=== PATIENT | female | born 1990 | race Caucasian/White ===

== ENCOUNTER 2017-04-28 10:50 | Emergency (ER) | payer SELFPAY ==
[~2017-04-28 10:50] MED LIST: HYDR-971 PO
[2017-04-28 11:05] VITALS: BP 128/69
[2017-04-28] MEDS ORDERED: KETOROLAC TROMETHAMINE 30 MG/ML INJ. IV ONE (11:30)
[2017-04-28] MEDS ORDERED: PROCHLORPERAZINE 10 MG/2 ML VIAL. IV ONE (11:30)
[2017-04-28] MEDS ORDERED: IV NORMAL SALINE 1000ML BAG 1,000 ML IV ONE (11:30)
[2017-04-28] MEDS ORDERED: diphenhydrAMINE 50 MG/ML VIAL IVP ONE (11:30)
[2017-04-28 11:56] LABS: BASO % 1 % (0-3); EOS % 2 % (0-3); HEMATOCRIT 41.1 % (36.0-47.0); HEMOGLOBIN 14.2 g/dL (12.0-15.5); LYMPH # 1.4 x10^3/uL (1.0-4.8); LYMPH % 33 % (24-48); MEAN CORPUSCULAR HEMOGLOBIN 30 pg (25-35); MEAN CORPUSCULAR HGB CONC 35 g/dL (31-37); MEAN CORPUSCULAR VOLUME 85 fL (79-100); MONO % 7 % (0-9); NEUT % 58 % (31-73); PLATELET COUNT 217 x10^3/uL (140-400); RED BLOOD COUNT 4.81 x10^6/uL (3.50-5.40); RED CELL DISTRIBUTION WIDTH 13.4 % (11.5-14.5); WHITE BLOOD COUNT 4.3 x10^3/uL (4.0-11.0)
[2017-04-28 12:10] LABS: CALCIUM 9.2 mg/dL (8.5-10.1); CREATININE 0.7 mg/dL (0.6-1.0); POTASSIUM 4.3 mmol/L (3.5-5.1)
[2017-04-28 12:14] LABS: ALBUMIN 4.2 g/dL (3.4-5.0); ALBUMIN/GLOBULIN RATIO 1.2 (1.0-1.7); TOTAL BILIRUBIN 0.5 mg/dL (0.2-1.0); TOTAL PROTEIN 7.7 g/dL (6.4-8.2)
--- NOTE | 2017-04-28 12:17 | PHYS DOC ---
Past Medical History Past Medical History: GERD Past Surgical History: No Surgical History Alcohol Use: None Drug Use: None Adult General Chief Complaint Chief Complaint: HEADACHE HPI HPI Patient is a 26 year old female presenting to the emergency department for evaluation of a headache that has been going on for 3 weeks. Headache is intermittent mostly occipital in nature but can radiate to the front of her head and is associated with photophobia and nausea and dizziness and sometimes she feels somewhat confused. She has seen the nurse practitioner for her primary care provider several times and was started on a migraine medication that starts with an M that she did not bring it. Patient denies any history of headaches but she did hit her head before these headache started and they were thinking that this may be a postconcussive type headache. She denies any vision changes nausea vomiting neck stiffness unilateral weakness numbness or tingling. Review of Systems Review of Systems Constitutional: Denies fever or chills [] Eyes: Denies change in visual acuity, redness, or eye pain [] Respiratory: Denies cough or shortness of breath [] Cardiovascular: No additional information not addressed in HPI [] GI: Denies abdominal pain. + nausea. No vomiting, bloody stools or diarrhea [] : Denies dysuria or hematuria [] Musculoskeletal: Denies back pain or joint pain [] Integument: Denies rash or skin lesions [] Neurologic: + headache. No focal weakness or sensory changes [] Current Medications Current Medications Current Medications Medications (Trade) Dose Ordered Sig/John Start Time Stop Time Status Last Admin Dose Admin Diphenhydramine HCl (Benadryl) 50 mg 1X ONCE 04/28/17 11:30 04/28/17 11:31 DC 04/28/17 11:30 50 MG Ketorolac Tromethamine (Toradol) 30 mg 1X ONCE 04/28/17 11:30 04/28/17 11:31 DC 04/28/17 11:30 30 MG Prochlorperazine Edisylate (Compazine) 10 mg 1X ONCE 04/28/17 11:30 04/28/17 11:31 DC 04/28/17 11:30 10 MG Sodium Chloride 1,000 ml @ 1,000 mls/hr 1X ONCE 04/28/17 11:30 04/28/17 12:29 DC 04/28/17 11:30 1,000 MLS/HR Allergies Allergies Allergies Coded Allergies Type Severity Reaction Last Updated Verified No Known Drug Allergies 07/14/16 No Physical Exam Physical Exam Constitutional: Well developed, well nourished, no acute distress, non-toxic appearance. [] HENT: Normocephalic, atraumatic, bilateral external ears normal, oropharynx moist, no oral exudates, nose normal. [] Eyes: PERRLA, EOMI, conjunctiva normal, no discharge. [] Neck: Normal range of motion, no tenderness, supple, no stridor. [] Cardiovascular:Heart rate regular rhythm, no murmur [] Lungs & Thorax: Bilateral breath sounds clear to auscultation [] Abdomen: Bowel sounds normal, soft, no tenderness, no masses, no pulsatile masses. [] Skin: Warm, dry, no erythema, no rash. [] Back: No tenderness, no CVA tenderness. [] Extremities: No tenderness, no cyanosis, no clubbing, ROM intact, no edema. [] Neurologic: Alert and oriented X 3, normal motor function, normal sensory function, no focal deficits noted. [] Current Patient Data Vital Signs Vital Signs Date Time Temp Pulse Resp B/P (MAP) Pulse Ox O2 Delivery O2 Flow Rate FiO2 04/28/17 11:05 98.2 92 20 128/69 (88) 100 Room Air 98.2 Lab Values Laboratory Tests Test 04/28/17 11:31 04/28/17 11:38 04/28/17 12:20 POC Urine HCG, Qualitative Hcg negative (Negative) White Blood Count 4.3 x10^3/uL (4.0-11.0) Red Blood Count 4.81 x10^6/uL (3.50-5.40) Hemoglobin 14.2 g/dL (12.0-15.5) Hematocrit 41.1 % (36.0-47.0) Mean Corpuscular Volume 85 fL (79-100) Mean Corpuscular Hemoglobin 30 pg (25-35) Mean Corpuscular Hemoglobin Concent 35 g/dL (31-37) Red Cell Distribution Width 13.4 % (11.5-14.5) Platelet Count 217 x10^3/uL (140-400) Neutrophils (%) (Auto) 58 % (31-73) Lymphocytes (%) (Auto) 33 % (24-48) Monocytes (%) (Auto) 7 % (0-9) Eosinophils (%) (Auto) 2 % (0-3) Basophils (%) (Auto) 1 % (0-3) Neutrophils # (Auto) 2.5 x10^3uL (1.8-7.7) Lymphocytes # (Auto) 1.4 x10^3/uL (1.0-4.8) Monocytes # (Auto) 0.3 x10^3/uL (0.0-1.1) Eosinophils # (Auto) 0.1 x10^3/uL (0.0-0.7) Basophils # (Auto) 0.0 x10^3/uL (0.0-0.2) Sodium Level 142 mmol/L (136-145) Potassium Level 4.3 mmol/L (3.5-5.1) Chloride Level 103 mmol/L (98-107) Carbon Dioxide Level 32 mmol/L (21-32) Anion Gap 7 (6-14) Blood Urea Nitrogen 11 mg/dL (7-20) Creatinine 0.7 mg/dL (0.6-1.0) Estimated GFR (Cockcroft-Gault) 102.0 BUN/Creatinine Ratio 16 (6-20) Glucose Level 94 mg/dL (70-99) Calcium Level 9.2 mg/dL (8.5-10.1) Magnesium Level 2.0 mg/dL (1.8-2.4) Total Bilirubin 0.5 mg/dL (0.2-1.0) Aspartate Amino Transferase (AST) 13 U/L (15-37) L Alanine Aminotransferase (ALT) 16 U/L (14-59) Alkaline Phosphatase 48 U/L (46-116) Creatine Kinase 32 U/L (26-192) Total Protein 7.7 g/dL (6.4-8.2) Albumin 4.2 g/dL (3.4-5.0) Albumin/Globulin Ratio 1.2 (1.0-1.7) Ethyl Alcohol Level < 10 mg/dL (0-10) Urine Collection Type Unknown Urine Color Yellow Urine Clarity Clear Urine pH 7.5 Urine Specific Herrick 1.010 Urine Protein Negative mg/dL (NEG-TRACE) Urine Glucose (UA) Negative mg/dL (NEG) Urine Ketones (Stick) Negative mg/dL (NEG) Urine Blood Negative (NEG) Urine Nitrite Negative (NEG) Urine Bilirubin Negative (NEG) Urine Urobilinogen Dipstick 0.2 mg/dL (0.2 mg/dL) Urine Leukocyte Esterase Large (NEG) Urine RBC 0 /HPF (0-2) Urine WBC 20-40 /HPF (0-4) Urine Squamous Epithelial Cells Mod /LPF Urine Bacteria 0 /HPF (0-FEW) Urine Opiates Screen Neg (NEG) Urine Methadone Screen Neg (NEG) Urine Barbiturates Neg (NEG) Urine Phencyclidine Screen Neg (NEG) Urine Amphetamine/Methamphetamine Neg (NEG) Urine Benzodiazepines Screen Neg (NEG) Urine Cocaine Screen Neg (NEG) Urine Cannabinoids Screen Neg (NEG) Urine Ethyl Alcohol Neg (NEG) Laboratory Tests 04/28/17 11:38 Laboratory Tests 04/28/17 11:38 EKG EKG [] Radiology/Procedures Radiology/Procedures ndication headache for 3 weeks. Noncontrast images of the head were obtained. No prior imaging of the head is available. The calvarium appears unremarkable. The visualized paranasal sinuses appear normal. There is no subdural or epidural hematoma. Ventricles and sulci are normal. No mass or midline shift is seen. There is no evidence of hemorrhage. IMPRESSION: No acute or significant intracranial finding is seen PQRS Compliance Statement: One or more of the following individualized dose reduction techniques were utilized for this examination: 1. Automated exposure control 2. Adjustment of the mA and/or kV according to patient size 3. Use of iterative reconstruction technique DICTATED and SIGNED Course & Med Decision Making Course & Med Decision Making Patient's headache completely resolved with Toradol Compazine and Benadryl and IV fluids. Given patient's pain was resolved I told her that she may be able to go home and she was requesting to go home. See any evidence of subarachnoid hemorrhage cerebral venous thrombosis meningitis or other acute headache condition at this time. Complex migraines is most likely diagnosis. O2 the neurologist digital production manager Dr. Leiva and he recommended starting amitriptyline having patient follow with the neurology office later this week. I spoke to patient and offered admission for further pain control and MRI and MRV however patient says that she was feeling much better and wanted to go home and would come back if she started having severe pain again. Patient aware and agreeable with plan for discharge and verbalized understanding of the need for short-term follow-up and strict ER return precautions discussed including worsening pain fevers vomiting or other general concerns. Dragon Disclaimer Dragon Disclaimer This electronic medical record was generated, in whole or in part, using a voice recognition dictation system. Departure Departure Impression: Primary Impression: Headache Disposition: 01 HOME, SELF-CARE Condition: GOOD Referrals: BASSAM CUNNINGHAM MD (PCP) Patient Instructions: Headache, FAQs Additional Instructions: YOU CAN TAKE TYLENOL AND IBUPROFEN FOR THE PAIN. FOLLOW WITH THE NEUROLOGIST THIS WEEK AND COME BACK TO THE ED SOONER WITH ANY NEW OR WORSENING SYMPTOMS. THANK YOU! Scripts Amitriptyline Hcl (AMITRIPTYLINE HCL) 25 Mg Tablet 1 TAB PO QHS, #30 TAB 0 Refills Prov: BASSAM SAMS DO 04/28/17 Ondansetron (ZOFRAN ODT) 4 Mg Tab.rapdis 4 MG PO BID Y for NAUSEA/VOMITING, #14 TAB Prov: BASSAM SAMS DO 04/28/17 Problem Qualifiers Primary Impression: Headache Headache type: unspecified Headache chronicity pattern: acute headache Intractability: not intractable Qualified Codes: R51 - Headache BASSAM SAMS DO Apr 28, 2017 12:17
[2017-04-28 12:38] LABS: BILIRUBIN,URINE NEGATIVE (NEG); GLUCOSE,URINE NEGATIVE (NEG); NITRITE,URINE NEGATIVE (NEG); PH,URINE 7.5; PROTEIN,URINE NEGATIVE (NEG-TRACE); UROBILINOGEN,URINE 0.2 mg/dL (0.2 mg/dL)
[2017-04-28 12:39] LABS: BARBITURATES NEG (NEG); BENZODIAZEPINES NEG (NEG); CANNABINOIDS NEG (NEG); COCAINE NEG (NEG); METHADONE NEG (NEG); OPIATES NEG (NEG); PHENCYCLIDINE NEG (NEG)
[2017-04-28 12:52] LABS: BACTERIA,URINE 0 /HPF (0-FEW); RBC,URINE 0 /HPF (0-2); SQUAMOUS EPITHELIAL CELL,UR MOD /LPF; WBC,URINE 20-40 /HPF (0-4)
--- NOTE | 2017-04-28 13:10 | RAD ---
Indication headache for 3 weeks. Noncontrast images of the head were obtained. No prior imaging of the head is available. The calvarium appears unremarkable. The visualized paranasal sinuses appear normal. There is no subdural or epidural hematoma. Ventricles and sulci are normal. No mass or midline shift is seen. There is no evidence of hemorrhage. IMPRESSION: No acute or significant intracranial finding is seen PQRS Compliance Statement: One or more of the following individualized dose reduction techniques were utilized for this examination: 1. Automated exposure control 2. Adjustment of the mA and/or kV according to patient size 3. Use of iterative reconstruction technique
[2017-04-28] MEDS ORDERED: AMIT25TA PO (13:40)
[2017-04-28] MEDS ORDERED: ONDA4TAB10 PO (13:40)
== END 2017-04-28 13:50 | disposition home or self-care (01) ==
LOC: ER 10:54
DX: R51 Headache (principal); R42 Dizziness and giddiness; R11.0 Nausea; K21.9 Gastro-esophageal reflux disease without esophagitis
CPT/HCPCS: 36415; 70450; 80053; 80305; 80320; 81001; 81025; 82550; 83735; 85027; 87086; 96361; 96374; 96375; 99285; J0780; J1200; J1885; J7030; G0480; G0481